=== PATIENT | female | born 1980 | race Caucasian/White ===

== ENCOUNTER 2021-10-09 15:13 | Inpatient (IN) | payer OTHER ==
[~2021-10-09] VITALS: Ht 167.6 cm; Wt 81.7 kg
[~2021-10-09 15:13] MED LIST: ONDA4ODT MM; PROM25 PO
[2021-10-09] MEDS ORDERED: Amphetamine Sal20 MG PO (16:12)
[2021-10-09 16:13] LABS: BASOPHILS ABSOLUTE AUTO 0.05 K/mm3 (0.00-0.23); BASOPHILS PERCENT AUTO 1 % (0-2); EOSINOPHILS ABSOLUTE AUTO 0.12 K/mm3 (0.00-0.68); EOSINOPHILS PERCENT AUTO 2 % (0-6); Hemoglobin 14.4 g/dL (11.5-16.0); IMMATURE GRAN ABSOLUTE AUTO 0.01 K/mm3 (0.00-0.10); IMMATURE GRAN PERCENT AUTO 0 % (0-1); LYMPHOCYTES ABSOLUTE AUTO 1.47 K/mm3 (0.84-5.20); LYMPHOCYTES PERCENT AUTO 22 % (21-46); MONOCYTES ABSOLUTE AUTO 0.35 K/mm3 (0.16-1.47); MONOCYTES PERCENT AUTO 5 % (4-13); Mean Corpuscular HGB 28.8 pg (26.0-34.0); Mean Corpuscular HGB Conc 35.1 g/dL (31.5-36.5); Mean Corpuscular Volume 82 fL (80-100); Mean Platelet Volume 9.8 fL (9.1-12.4); NEUTROPHILS ABSOLUTE AUTO 4.62 K/mm3 (1.96-9.15); NEUTROPHILS PERCENT AUTO 70 % (41-73); Platelet Count 252 K/mm3 (150-400); RDW Coefficient Variation 12.2 % (11.7-14.2); RDW Standard Deviation 36.8 fL (35.1-46.3); White Blood Cell Count 6.62 K/mm3 (4.00-11.30)
[2021-10-09 16:26] LABS: Alanine Aminotransfer (ALT/SGP 26 U/L (12-78); Albumin, Blood 3.7 g/dL (3.4-5.0); Alk Phos 73 U/L (50-136); Anion Gap 4 mmol/L (6-16); Aspartate Aminotrans (AST/SGOT 17 U/L (12-37); Bilirubin, Total 0.4 mg/dL (0.1-1.0); Blood Urea Nitrogen 13 mg/dL (8-24); Bun/Creatinine Ratio 14.3 (12.0-20.0); CO2, Blood 27 mmol/L (21-32); Chloride, Blood 106 mmol/L (98-108); Creatinine, Blood 0.91 mg/dL (0.40-1.00); Globulin, Blood 3.6 g/dL (2.2-4.0); Glomerular Filtration Rate >60 (60-); Glucose, Blood 110 mg/dL (70-99); Potassium, Blood 3.9 mmol/L (3.5-5.5); Sodium, Blood 137 mmol/L (136-145); Total Protein, Blood 7.3 g/dL (6.4-8.2)
[2021-10-09 19:40] LABS: Source, Urine Clean Catch
[2021-10-09 19:52] LABS: Appearance, Urine Clear (Clear); Bilirubin, Urine Neg (Neg); Blood, Urine Neg (Neg); Color, Urine Yellow (P-Yellow); Glucose Qualitative, Urine Neg (Neg); Ketones, Urine Neg (Neg); Leukocyte Esterase, Urine Neg (Neg); Nitrite, Urine Neg (Neg); Protein, Urine Neg (Neg); Urobilinogen, Urine NORM (Normal)
[2021-10-09] MEDS ORDERED: MECL25 PO (20:45)
--- NOTE | 2021-10-09 23:49 | NUR ---
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 PT REPORTS FEELING DIZZINESS AND THE SENSATION THAT HER HEART IS BEATING QUICKLY SINCE SATURDAY, STATES THAT SHE THINKS SHE IS MORE DIZZY THAN PREVIOUSLY, UNABLE TO TOLERATE LOWERING THE HEAD OF THE BED. ON-CALL NOTIFIED, ORDER OBTAINED FOR EKG.
[2021-10-10 05:13] LABS: BASOPHILS ABSOLUTE AUTO 0.04 K/mm3 (0.00-0.23); BASOPHILS PERCENT AUTO 1 % (0-2); EOSINOPHILS PERCENT AUTO 2 % (0-6); Hematocrit 36.8 % (33.0-51.0); IMMATURE GRAN ABSOLUTE AUTO 0.02 K/mm3 (0.00-0.10); IMMATURE GRAN PERCENT AUTO 0 % (0-1); LYMPHOCYTES ABSOLUTE AUTO 2.18 K/mm3 (0.84-5.20); LYMPHOCYTES PERCENT AUTO 37 % (21-46); MONOCYTES ABSOLUTE AUTO 0.51 K/mm3 (0.16-1.47); MONOCYTES PERCENT AUTO 9 % (4-13); Mean Corpuscular HGB Conc 35.3 g/dL (31.5-36.5); Mean Corpuscular Volume 82 fL (80-100); Mean Platelet Volume 10.1 fL (9.1-12.4); NEUTROPHILS ABSOLUTE AUTO 3.08 K/mm3 (1.96-9.15); NEUTROPHILS PERCENT AUTO 52 % (41-73); Platelet Count 208 K/mm3 (150-400); RDW Coefficient Variation 12.4 % (11.7-14.2); RDW Standard Deviation 37.2 fL (35.1-46.3); Red Blood Cell Count 4.48 M/mm3 (3.80-5.20); White Blood Cell Count 5.93 K/mm3 (4.00-11.30)
--- NOTE | 2021-10-10 05:39 | NUR ---
SHIFT SUMMARY: MAC IS A&OX4. BRADYCARDIA NOTED, DROPPING INTO THE 40s OCCASIONALLY. EKG PERFORMED WHICH DEMONSTRATED SINUS BRADYCARDIA. PT DENIES INCREASED SHORTNESS OF BREATH OR FEELING OF "PALPITATIONS" WHICH SHE STATED BEGAN ON SATURDAY. SHE DOES STATE THAT HER LEFT EYE AND SURROUNDING TISSUE IS QUITE SENSITIVE TO TOUCH WITH A BURNING SENSATION. SHE DESCRIBES THE DIZZINESS "IT FEELS LIKE THE ROOM IS SPINNING", BUT IS ABLE TO AMBULATE TO THE BATHROOM INDEPNEDENTLY. BEDSIDE COMMODE AT BEDSIDE. SHE IS ABLE TO TOLERATE PO INTAKE. 18 G IV TO R AC PATENT, IV FLUIDS INFUSING. MRI SCREENING FORM COMPLETED IN THE ER PER REPORT. TELE IN PLACE. SHE IS LYING IN BED WITH THE CALL LIGHT IN REACH. WILL REPORT TO DAY SHIFT RN.
[2021-10-10 06:03] LABS: Alanine Aminotransfer (ALT/SGP 21 U/L (12-78); Albumin, Blood 3.2 g/dL (3.4-5.0); Albumin/Globulin Ratio 1.1 (0.8-1.8); Alk Phos 63 U/L (50-136); Anion Gap 9 mmol/L (6-16); Aspartate Aminotrans (AST/SGOT 17 U/L (12-37); Bilirubin, Total 0.5 mg/dL (0.1-1.0); Blood Urea Nitrogen 13 mg/dL (8-24); Bun/Creatinine Ratio 13.6 (12.0-20.0); CO2, Blood 26 mmol/L (21-32); Calcium, Blood 8.2 mg/dL (8.5-10.1); Chloride, Blood 106 mmol/L (98-108); Creatinine, Blood 0.95 mg/dL (0.40-1.00); Glomerular Filtration Rate >60 (60-); Glucose, Blood 100 mg/dL (70-99); Potassium, Blood 3.9 mmol/L (3.5-5.5); Sodium, Blood 141 mmol/L (136-145); Total Protein, Blood 6.2 g/dL (6.4-8.2)
--- NOTE | 2021-10-10 18:25 | NUR ---
SUMMARY- PT A/O X4. COMPLAINED OF DIZZINESS AND NAUSEA EARLY IN THE DAY. MEDICATED WITH ZOFRAN PRN. MEDICATED MECLEZINE ONCE. POSSIBLY HELPED. MRI APPEARS TANNER. PILOCARPINE IN L EYE 1532, RECHECKED PUPIL ON L 30 MIN LATER AND IT BROUGHT IT DOWN TO THE SAME SIZE THE R PUPIL 4MM- (L STARTED AT 5MM) AFTER PILOCARPINE PT STATES DIZZINESS LESSENED AND ATEAST SHE WASN'T SEEING FLASHES. STARTED SOLUMEDROL IV 3OMIN LATER. PT TOLERATING FOOD AND FLUIDS. AMBULATES STEADY ON FEET IN ROOM DESPITE DIZZINESS. VOIDING. PLAN TO STAY IN HOSPITAL FOR STEROID [place] FOR A FEW DAYS.
--- NOTE | 2021-10-11 06:10 | NUR ---
PT with covid 19 dx on 09/30/21 had lt eye visual & pupilary changes & had itchiness without redness. Had head MRI Head CT both neg. Given high dose IV steroids x 2 my shift with improvement in dizziness & lt eye irritation.
--- NOTE | 2021-10-11 18:41 | NUR ---
PT SUMMARY: PT ALERT AND ORIENTED X4. VITALS HRR SR AT 70'S PER TELE PT WAS UP TO 150'S WHEN PT WAS UP AMBULATING TO THE BATHROOM ONCE, NO OTHER ABNORMALITY REPORTED, BP SYSTOLIC 120'S, SATS ABOVE 95% ON RA, AFEBRILE. DENIES SOB/CHEST PAIN. STILL HAS SOME BLURRY VISION ON LEFT EYE, DIZZINESS AND HEAD ACHE, MECLIZINE X1 GIVEN ALSO HAD ONE TIME DOSE OF IMITREX, PT STATED IT WAS SLIGHTLY EFFECTIVE. REMAINS ON HIGH DOSE STEROID 250MG Q6HRS NO COMPLAINS REPORTED. PT HAS BEEN INDEPENDENT IN THE ROOM AMBUALTING WITH NO ISSUES, MILD UNSTEADY GAIT UPON GETTING UP BUT AMBULATES WITH NO ISSUES, PT HAD SHOWER TODAY. ADEQUATE FOOD AND FLUID INTAKE. NO OTHER ISSUES REPORTED, PT ABLE TO MAKE NEEDS KNOWN CALL LIGHTS IN REACH WILL REPORT TO ONCOMING SHIFT
--- NOTE | 2021-10-12 04:04 | NUR ---
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 She is on high dose IV steroids Q 6 hours to treat lt eye problems & dizziness. Both have improved. HX of migrane headaches had day shift with imitrex given. Medicated with tylenol 650 mg with mild helpful effect. Tolerating diet & activity. Melatonin 5 mg at hs & meclizine for mild dizziness at HS helpful. PT on room air dry non prod cough with covid 19.
--- NOTE | 2021-10-12 04:10 | NUR ---
PT has helpful effect from antiinflammatory effect of steroids to treat lt eye visual changes brought on by covid 19. BG not elevated excessivly by steroids. Continues on room air
--- NOTE | 2021-10-12 18:45 | NUR ---
SHIFT NOTE PT REPORTS IMPROVEMENT OF VISUAL DISTURBANCE. DOES C/O MIGRAINE TODAY WHICH IS TREATED WITH EXCEDRIN. THIS EVENING PT ASKED THAT SHE ONLY TAKE 5MG OF HER 20MG ORDERED ADDERAL, 5MG WAS ADMINISTERED REQUESTED. PT OTERWISE FREE OF CP AND SOB. TALKING IN FULL SENTENCES. VSS. NADN. NO ACTUE CHANGES THIS SHIFT NOTED
--- NOTE | 2021-10-13 06:44 | NUR ---
Shift notes Patient stable, no acute event overnight. She stated that her eyes improved, no complaint of disconfort.
[2021-10-13] MEDS ORDERED: PANT20 PO (12:14)
[2021-10-13] MEDS ORDERED: MELATONIN5 M1 PO (12:14)
[2021-10-13] MEDS ORDERED: PRED20 (12:16)
== END 2021-10-13 14:38 | disposition home or self-care (01) | DRG 123 ==
LOC: ER 15:13 → MEDS 15:14
PROVIDERS: Physician Assistant; ADMIT Internal Medicine
PROC: 8E0ZXY6 Isolation (ICD-10-PCS; principal; 2021-10-10)
DX: H46.9 Unspecified optic neuritis (principal); U07.1 COVID-19; Z88.6 Allergy status to analgesic agent; Z79.899 Other long term (current) drug therapy; Z91.040 Latex allergy status; Z85.828 Personal history of other malignant neoplasm of skin; Z88.5 Allergy status to narcotic agent; Z98.51 Tubal ligation status; Z53.29 Procedure and treatment not carried out because of patient's decision for other reasons; Z98.890 Other specified postprocedural states; F17.210 Nicotine dependence, cigarettes, uncomplicated
CPT/HCPCS: 36415; 70450; 70553; 71045; 80053; 81003; 82947; 83690; 84484; 85025; 93005; 93010; 96372; 96374; 96376; 99285-25; A9270; A9579; G0378; J1650; J2405; J2930; J7030